=== PATIENT | female | born 1965 | race African-American/Black ===

== ENCOUNTER 2018-01-02 18:01 | Emergency (ER) | payer OTHER ==
[~2018-01-02] VITALS: Ht 157.5 cm; Wt 68.9 kg
[2018-01-02 18:36] VITALS: BP 101/70
[2018-01-02] MEDS ORDERED: TRONOLANE TP (18:59)
[2018-01-02] MEDS ORDERED: KENALOG 0.5% CR15 GM APPLIC (18:59)
[2018-01-02] MEDS ORDERED: CEPHALEXIN500 MG ORAL (19:02)
--- NOTE | 2018-01-02 19:07 | Emergency Room Report ---
History of Present Illness General Chief Complaint: Skin Rash/Abscess Source: Patient Present Illness HPI Patient is a 52-year-old female who presented after increased left upper extremity discomfort and itching. Patient gradual onset of symptoms since yesterday. Patient reports having increased itchiness after a mosquito bite to her left hand. Patient had increased swelling. She reported having used topical cortisone cream without any improvement. Allergies: Coded Allergies: FEXOFENADINE (Verified Allergy, Unknown, 01/02/18) Uncoded Allergies: TYLENOL4 (Allergy, Unknown, 01/02/18) VICODEN (Allergy, Unknown, 01/02/18) Patient History Past Medical History: see triage record Last Menstrual Period: 11/22/17 Now: No Reviewed Nursing Documentation: PMH: Agreed; PSxH: Agreed Nursing Documentation-PMH Past Medical History: No History, Except For Hx Asthma: No - sinusitis Review of Systems All Other Systems: negative except mentioned in HPI Physical Exam Vital Signs Date Time Temp Pulse Resp B/P (MAP) Pulse Ox O2 Delivery O2 Flow Rate FiO2 01/02/18 18:24 98.2 63 20 101/70 98 Room Air 98.2 General Appearance: well appearing, no apparent distress, alert, GCS 15 Head: normocephalic, atraumatic ENT: hearing grossly normal, normal voice Neck: full range of motion, supple Respiratory: no respiratory distress, speaking full sentences Musculoskeletal: no calf tenderness Neurologic: normal inspection, alert, oriented x3, responsive, normal gait Psychiatric: mood/affect normal Skin: other - left hand swelling, minimal erythema proximal to hand Medical Decision Making Diagnostic Impression: Primary Impression: Insect bite ER Course Patient presented for left hand swelling. The differential diagnosis included wasn't limited to cellulitis, abscess, infected bite, allergic reaction and among others. Patient has a benign exam and does not appear to require any further imaging or laboratory testing at this time. The patient appears to have a minimally infected insect bite with local irritation. The patient is given prescription for had medium potency steroid. The patient shows no signs of anaphylaxis this time. Patient does not appear to have systemic infection. The patient is advised to follow up with primary care doctor in 1-2 days. Patient is advised to return if any worsening condition or if any changes in status that are concerning. This report is dictated with [employer] last putter away software which may occasionally lead to discrepancies related to use of this software. Last Vital Signs Date Time Temp Pulse Resp B/P (MAP) Pulse Ox O2 Delivery O2 Flow Rate FiO2 01/02/18 18:36 98.2 78 20 101/70 98 Room Air 98.2 Status: improved Disposition: HOME, SELF-CARE Condition: Stable Scripts Cephalexin* (KEFLEX*) 500 Mg Capsule 500 MG ORAL EVERY 6 HOURS, #28 CAP Prov: Chance Tsang MD 01/02/18 Pramoxine Hcl/Zinc Oxide (TRONOLANE CREAM) 28 Gm Cream..g. 28 GM TP THREE TIMES A DAY, #30 GM Prov: Chance Tsang MD 01/02/18 Triamcinolone Acet (Triamcinolone Acetonide) 15 Gm Cream..g. 15 GM APPLIC TWICE A DAY, #15 GM Prov: Chance Tsang MD 01/02/18 Patient Instructions: Insect Bite Chanec Tsang MD Jan 02, 2018 19:07
[2018-01-02 19:10] VITALS: BP 101/70
== END 2018-01-02 19:10 | disposition home or self-care (01) ==
LOC: EMR 18:50
DX: S60.562A Insect bite (nonvenomous) of left hand, initial encounter (principal); W57.XXXA Bitten or stung by nonvenomous insect and other nonvenomous arthropods, initial encounter; Y92.9 Unspecified place or not applicable; Z88.6 Allergy status to analgesic agent
CPT/HCPCS: 99284